=== PATIENT | male | born 1990 | race Two or more races ===

== ENCOUNTER 2018-05-23 20:38 | Emergency (ER) | payer SELFPAY ==
[~2018-05-23] VITALS: Ht 170.2 cm; Wt 70.0 kg
[2018-05-23] MEDS ORDERED: SODIUM CHLORIDE FLUSH 10ML SYR IVF ONE (22:00)
[2018-05-23] MEDS ORDERED: EPINEPHRINE 1 MG/ML, 1ML SQ ONE (22:00)
[2018-05-23] MEDS ORDERED: FAMOTIDINE 20 MG/2 ML IVPush ONE (22:00)
[2018-05-23] MEDS ORDERED: methylPREDNISolone SOD SUCC 125 MG/2 ML IVPush ONE (22:00)
[2018-05-23] MEDS ORDERED: SODIUM CHLORIDE 0.9% 1,000ML IVBOLUS ONE (22:00)
[2018-05-23] MEDS ORDERED: DIPHENHYDRAMINE 50 MG/ML, 1ML IVPush ONE (22:00)
[2018-05-23] MEDS ORDERED: FAMOTIDINE 20 MG/2 ML ONE (22:06)
[2018-05-23] MEDS ORDERED: EPINEPHRINE 1 MG/ML, 1ML ONE (22:06)
[2018-05-23] MEDS ORDERED: methylPREDNISolone SOD SUCC 125 MG/2 ML ONE (22:06)
[2018-05-23] MEDS ORDERED: KETOROLAC 30 MG/1 ML IVPush ONE (22:30)
[2018-05-23] MEDS ORDERED: KETOROLAC 30 MG/1 ML IM ONE (22:30)
[2018-05-23] MEDS ORDERED: KETOROLAC 30 MG/1 ML ONE (22:34)
[2018-05-23 23:35] VITALS: BP 130/73
== END 2018-05-23 23:37 | disposition home or self-care (01) ==
LOC: ED 23:20
DX: S00.86XA Insect bite (nonvenomous) of other part of head, initial encounter (principal); T78.3XXA Angioneurotic edema, initial encounter; W57.XXXA Bitten or stung by nonvenomous insect and other nonvenomous arthropods, initial encounter; Y93.89 Activity, other specified; Y92.89 Other specified places as the place of occurrence of the external cause; Y99.8 Other external cause status
CPT/HCPCS: 93005; 96372; 96374; 96375; 99284; J0171; J1885; J2930; J7030; S0028